=== PATIENT | male | born 1985 | race African-American/Black ===

== ENCOUNTER 2019-11-21 02:39 | Emergency (ER) | payer BC, OTHER ==
[~2019-11-21] VITALS: Ht 190.5 cm; Wt 93.4 kg
[~2019-11-21 02:39] MED LIST: CARISOPRODOL 3350 MG PO; IBUPROFEN 800800 M1 PO; NAPROSYN500 MG PO; TRAMADOL 50 MG50 MG PO; ULTRAM 50MG TAB50 MG PO; ZOFRAN ODT4 MG PO
[2019-11-21] MEDS ORDERED: IBUPROFEN 800800 MG PO (05:13)
[2019-11-21] MEDS ORDERED: NORCO 5-325 TA1 EAC1 PO (05:19)
[2019-11-21 05:35] VITALS: BP 134/89
== END 2019-11-21 05:45 | disposition home or self-care (01) ==
LOC: ER 02:39
DX: S00.83XA Contusion of other part of head, initial encounter (principal); S50.01XA Contusion of right elbow, initial encounter; S79.812A Other specified injuries of left hip, initial encounter; V89.2XXA Person injured in unspecified motor-vehicle accident, traffic, initial encounter; Y93.89 Activity, other specified; Y92.89 Other specified places as the place of occurrence of the external cause; Y99.8 Other external cause status